=== PATIENT | male | born 1955 | race Caucasian/White ===

== ENCOUNTER 2022-12-25 13:36 | Outpatient (CLI) | payer BC, SELFPAY ==
[2022-12-25 17:35] LABS: Chloride* 107 mmol/L (96-114)
[2022-12-25 17:36] LABS: Potassium* 4.5 mmol/L (3.6-5.1); Sodium* 140 mmol/L (135-149)
[2022-12-25 17:38] LABS: Carbon Dioxide* 30 mmol/L (20-32); Cholesterol* 193 mg/dL (90-199); Estimated Glomerular Filt Rate 82 ml/min
[2022-12-25 17:39] LABS: Blood Urea Nitrogen* 18 mg/dL (7-30); Calcium* 9.3 mg/dL (8.4-10.6); Glucose* 95 mg/dL (60-115); HDL Cholesterol* 49 mg/dL (>=40); LDL Cholesterol Calculated 118 mg/dL (<100); Triglycerides* 129 mg/dL (40-149)
[2022-12-25 18:12] LABS: PSA Screen* 1.56 ng/mL (0.10-4.00)
== END 2022-12-25 13:37 | disposition home or self-care (01) ==
PROVIDERS: PCP Family Medicine; Visit Provider Family Medicine
DX: Z13.1 Encounter for screening for diabetes mellitus (principal); Z12.5 Encounter for screening for malignant neoplasm of prostate; Z13.6 Encounter for screening for cardiovascular disorders
CPT/HCPCS: 80048; 80061; 84153

== ENCOUNTER 2023-01-22 11:47 | Outpatient (CLI) | payer BC, SELFPAY | END 2023-01-22 11:48 | disposition home or self-care (01) | PROVIDERS: PCP Family Medicine; Visit Provider Internal Medicine | DX: Z12.11 Encounter for screening for malignant neoplasm of colon (principal); K63.5 Polyp of colon; K57.30 Diverticulosis of large intestine without perforation or abscess without bleeding | CPT/HCPCS: 45380; 45385; 88305; J2250; J3010 ==